=== PATIENT | female | born 1935 | race Caucasian/White ===

== ENCOUNTER 2024-08-18 17:20 | Inpatient (IN) | payer MEDICARE, SELFPAY ==
[2024-08-18 17:54] VITALS: BP 149/74; BP 149/79; PULSE 81; RESP 16; RESP 18; TEMP 37; O2SAT 94; BMI 25.8
--- NOTE | 2024-08-18 18:44 | HP.PCM_ITS ---
HPI - General General Date of Admission: 08/18/24 Date of Service: 08/19/24 Chief Complaint: Here for rehabilitation. HPI Narrative YULIYA GAVIN, is a 89 Female who presents with followin08/10/2024 Admit [facility] for fall. Fall with left hip fracture. Fentanyl, Morphine, Tramadol given. No syncope, no seizure. Morphine, gentle IV fluids, consult Orthopedics for left hip fracture. PT/OT/CM/SW. Lovenox for DVT prophylaxis. 08/11/2024 Orthopedics performed left cephalomedullary nail fixation. 08/12/2024 Doing well, Pain controlled. Henson in place, PT/OT. 08/13/2024 No acute events overnight, doing fine. On Otezla for Psoriasis. PT/OT for Inpatient rehabilitation. Up with PT. Patient developed oral thrush, c. diff diarrhea prior to discharge. 08/18/2024 Admit to TCU with debility, here for rehabilitation, strengthening, prior to discharge home alone. [facility] Medical History (Updated 08/18/24 @ 18:[address] Fred Paiz MD) Vitamin D deficiency Wrist fracture, bilateral Psoriasis Lactose intolerance History of bladder cancer Closed left hip fracture Fall Debility Home Medications ?Medication ?Instructions ?Recorded ?Last Taken ?Type acetaminophen 325 mg tablet 650 mg PO Q6H PRN mild pain (scale 08/18/24 08/18/24 History score 1-3) apremilast 30 mg tablet (Otezla) 30 mg PO DAILY see PCP 08/18/24 08/13/24 History ascorbic acid (vitamin C) 100 mg 100 mg PO DAILY supplement 08/18/24 Unknown History tablet (Vitamin C) cholecalciferol (vitamin D3) 50 2,000 unit PO DAILY supplement 08/18/24 Unknown History mcg (2,000 unit) capsule enoxaparin 40 mg/0.4 mL 40 mg subcut DAILY blood thinner 08/18/24 08/18/24 History subcutaneous syringe melatonin 10 mg tablet 10 mg PO QHS PRN sleep 08/18/24 Unknown History nystatin 100,000 unit/mL oral 5 ml PO TID thrush 08/18/24 08/18/24 History suspension oxycodone 5 mg tablet 2.5 mg PO Q6H PRN pain (scale 08/18/24 08/13/24 History score 4-10) polyethylene glycol 3350 17 17 g PO DAILY PRN constipation 08/18/24 08/13/24 History gram/dose oral powder (Miralax) trazodone 50 mg tablet 50 mg PO QHS PRN sleep 08/18/24 08/14/24 History vancomycin 125 mg capsule 125 mg PO 4X/DAY infection 08/18/24 Unknown History Allergy/AdvReac Type Severity Reaction Status Date / Time lactose Allergy Diarrhea Verified 08/18/24 17:51 Family History (Updated 08/18/24 @ 18:[address] Fred Paiz MD) Father Cancer Surgical History (Updated 08/18/24 @ 18:[address] Fred Paiz MD) History of open reduction and internal fixation (ORIF) procedure History of transurethral resection of bladder tumor (TURBT) History of cystoscopy Social History (Updated 08/18/24 @ 18:[address] Fred Paiz MD) household members: none Smoking Status: Never smoker alcohol intake: never substance use type: does not use ROS Constitutional Constitutional: Reports weakness; Denies chills, fever(s) or weight gain ENT HEENT: Denies headache(s), nasal congestion or nasal discharge Cardiovascular Cardiovascular: Denies chest pain or palpitations Respiratory/Chest Respiratory/Chest: Denies cough, excessive phlegm production or shortness of breath with exertion Gastrointestinal Gastrointestinal: Denies abdominal pain, nausea or vomiting Genitourinary Genitourinary: Denies dysuria Musculoskeletal Musculoskeletal: Denies joint pain or joint swelling Integumentary Integumentary: Denies rash or wounds Neurologic Neurologic: Denies focal weakness, numbness or tingling Psychiatric Psychiatric: Denies anxiety, auditory hallucinations, depression, homicidal ideation or suicidal ideation Physical Exam Const alert General Appearance: cooperative HEENT normocephalic Eyes PERRL and EOMs intact bilaterally Neck supple, no JVD and no carotid bruits Resp normal respiratory effort, normal air movement and clear to auscultation bilaterally Cardio regular rate and regular rhythm GI normal to inspection, nondistended, normoactive bowel sounds, non-tender and non-distended Extremity normal capillary refill Extremity Narrative: Left hip incision infected. Erythematous, tender, swollen, purulent drainage. General Extremity: Negative for edema Skin no rashes or lesions noted General Skin Exam: no breakdown Psych affect normal Appearance: appropriate Results Lab / Micro Data 08/19/24 05:28 08/19/24 05:28 Assessment & Plan Assessment/Plan (1) Debility: (2) Fall: (3) Closed left hip fracture: (4) History of bladder cancer: (5) Lactose intolerance: (6) Psoriasis: (7) Wrist fracture, bilateral: (8) Vitamin D deficiency: (9) Oral thrush: (10) Clostridioides difficile diarrhea: PLAN: Plan 89 year old female with below past medical history hospitalized for left hip fracture, under left hip cephalomedullary nail fixation 08/11/2024, complicated by oral thrush, c. diff diarrhea, admitted to TCU with debility, here for rehabilitation, strengthening, prior to discharge home alone. * Debility - PT/OT. * Pain - Tylenol 1000mg q8, Oxycodone 2.5mg q4 prn pain (1-10) * Bowel - Miralax 17gm daliy prn. * Adult immunization - Administer pneumonia vaccine, covid vaccine, flu vaccine as appropriate. * DVT prophylaxis - Lovenox 40mg sc daily. * Vitamin C deficiency - Vitamin C 500mg daily. * Vitamin D deficiency - D3 50mcg daily. * Insomnia - Melatonin 10mg qhs prn, Trazodone 50mg qhs prn, stable chronic residential use, GDR not recommended. * Thrush - Nystatin 500,000 units po tid thru 08/28/2024. * C. Diff colitis - Vancomycin 125mg po 4x/day thru 08/28/2024. * Cellulitis of left hip incision - swab gram stain, c+s, Keflex 500mg po bid x 7 days, Doxycycline 100mg bid x 7 days.
[2024-08-18] MEDS: Vancomycin 125 MG/5 ML Susp PO.SYRINGE PO (23:07)
[2024-08-18] MEDS: NYSTATIN 500,000 UNIT/5 ML UDC 500000 UNIT PO (23:07)
[2024-08-18] MEDS: Acetaminophen 500 MG Tablet 1000 MG PO (23:08)
--- NOTE | 2024-08-19 00:48 | NURSING ---
ABD pad to left thigh surgical incision seeping through dressing. Moderate amount of yellow/pink serosanguineous and purulent drainage noted. Incision site is reddened, warm to touch, and hard upon palpation. Surgical glue noted to incision, approximated with some separation noted. Tape blistering noted around surgical site. New ABD applied. Will continue to monitor. RN aware, will notify surgeon in AM.
[2024-08-19 05:53] LABS: Absolute Lymphocyte Count 2.16 X10^3/uL (0.83-4.51); Absolute Neutrophil Count 5.9 X10^3/uL (2.0-7.7); Basophil# 0.04 X10^3/uL; Basophil% 0.4 % (0-1); Eosinophil# 0.36 X10^3/uL; Eosinophils% 3.7 % (0-5); Hematocrit 29.9 % (37-47); Hemoglobin 9.9 g/dL (12.0-15.0); Lymphocyte # 2.16 X10^3/ul (0.83-4.51); Lymphocyte % 22.5 % (19-41); Mean Corp Hgb Conc 33.1 g/dL (32-36); Mean Corpuscular Hgb 29.7 pg (27.0-32.0); Mean Corpuscular Volume 89.8 fL (81-99); Mean Platelet Vol. 9.3 fl (6.2-12.0); Monocyte# 1.07 X10^3/uL; Monocyte% 11.1 % (0-10); NRBC Flagged by Analyzer 0 % (0-5); Neutrophil # 5.86 X10^3/uL (2.7-7.7); Neutrophil % 61.1 % (47-70); Platelet Count 388 K/mm3 (150-450); RBC Distribution Width CV 13.5 % (11.6-14.6); RBC Distribution Width SD 43.7 fl (35.1-43.9); Red Blood Count 3.33 M/mm3 (4.2-5.4); White Blood Count 9.6 K/mm3 (4.4-11.0)
[2024-08-19] MEDS: NYSTATIN 500,000 UNIT/5 ML UDC 500000 UNIT PO ×3 (06:03→21:12)
[2024-08-19] MEDS: Acetaminophen 500 MG Tablet 1000 MG PO ×3 (06:03→21:18)
[2024-08-19] MEDS: Vancomycin 125 MG/5 ML Susp PO.SYRINGE PO ×4 (06:03→21:13)
--- NOTE | 2024-08-19 06:14 | NURSING ---
Left hip dressing saturated upon med pass this AM, yellow and pink drainage. New ABD applied. RN aware. Will continue to monitor.
[2024-08-19 06:18] LABS: Anion Gap 6 (5-15); BUN 8 mg/dL (7-18); BUN/Creat Ratio 15.2 RATIO (10-20); Calcium,Total 8.7 mg/dL (8.5-10.1); Chloride 102 mmol/L (98-107); Creatinine, Serum 0.53 mg/dL (0.55-1.02); EST Glomerular Filtration Rate 117 mL/min (>60); Est Glom Filt Rate - Afr Amer 141 mL/min (>60); Estimated Creatinine Clearance 40.13 ml/min; Glucose 92 mg/dL (74-106); Potassium 3.7 mmol/L (3.5-5.1); Sodium Level 135 mmol/L (136-145)
[2024-08-19] MEDS: Enoxaparin 40 MG/0.4 ML Syringe SC (08:45)
[2024-08-19] MEDS: Ascorbic Acid 500 MG Tablet PO (08:45)
[2024-08-19] MEDS: Cholecalciferol (VIT D3) 25 MCG TABLET (1,000 UNITS) 50 MCG PO (08:45)
[2024-08-19] MEDS: Cephalexin 500 MG Capsule PO ×2 (08:45→21:13)
[2024-08-19] MEDS: Doxycycline monohydrate 25 MG/5 ML SUSP. 100 MG PO ×2 (08:45→21:16)
--- NOTE | 2024-08-19 10:50 | NURSING ---
Mainframe Programmer Note; Activity Asset: Gabriel Mcelroy is independent in her choice of daily activities. She was admitted on isolation and will need room activities at this time. She has her wood puzzles, smartphone, tv and items to read. Lilibeth was born in [facility] [place] and moved her when she was young w/her family. Staff will offer room activities during ISO period and respect her right top say no.
--- NOTE | 2024-08-19 11:32 | NURSING ---
Contacted Dr. Breezy Vergara office regarding draining from surgical incision and swelling. Medical staff requests pictures to be sent of hip and these are sent via secure email. Siri From Dr. Gee's office calls back with Dr. Gee's orders to continue Keflex and Doxycycline, continue to monitor for purulent drainage or redness and to reinforce with steri-strips if dehiscence begins, continue to change DSD daily and ice and elevate leg.
--- NOTE | 2024-08-19 12:26 | CASEMGMT ---
Social Work SW met with patient to complete initial assessment. Introduced self and role. Verified/updated contacts. Patient confirmed code status as full code. SW requested son provide copies of pt's advanced directives. SW educated to [facility] insurance with [employer]D 08/23 and continued stay is not guaranteed with each review. Pt's goal is to return home alone, but has a flight of steps to bedroom and full bath. SW will continue to follow for DC planning. Brittani Hudson, MAO BROWNW
[2024-08-19] MEDS: Tuberculin,Purif.prot.deriv. 50 TU/ML Vial 0.1 ML ID (13:20)
[2024-08-19 14:13] VITALS: BP 126/59; PULSE 75; RESP 16; TEMP 37; O2SAT 94
--- NOTE | 2024-08-19 15:02 | PHA.CONS_ITS ---
Documented by User: Lali Oliva 08/19/24 15:14 TCU RX Drug Regimen Review Subjective/Objective Subjective/Objective Subjective: TCU Admission. 89 YOF presented to outside hospital with a fall. Hospitalized for left hip fracture, under left hip cephalomedullary nail fix ation 08/11/2024, complicated by oral thrush, c. diff diarrhea. Admitted to TCU with debility for strengthening and rehabilitation. Objective: Allergies lactose Allergy (Verified 08/18/24 17:51) Diarrhea lactose intolerance Current Medications Generic Name Dose Route Start Last Admin Trade Name Freq PRN Reason Stop Dose Admin Acetaminophen 1,000 mg 08/18/24 22:00 08/19/24 13:20 Acetaminophen 500 Mg Tablet PO 1,000 mg Q8 EDDI Administration Ascorbic Acid 500 mg 08/19/24 10:00 08/19/24 08:45 Ascorbic Acid 500 Mg Tablet PO 500 mg DAILY EDDI Administration Cephalexin 500 mg 08/19/24 10:00 08/19/24 08:45 Cephalexin 500 Mg Capsule PO 08/26/24 10:01 500 mg Q12 EDDI Administration Cholecalciferol 50 mcg 08/19/24 10:00 08/19/24 08:45 Cholecalciferol (Vit D3) 25 Mcg Tablet (1,000 Units) PO 50 mcg DAILY EDDI Administration Doxycycline Monohydrate 100 mg 08/19/24 10:00 08/19/24 08:45 Doxycycline Monohydrate 25 Mg/5 Ml Susp. PO 08/26/24 10:01 100 mg Q12 EDDI Administration Enoxaparin Sodium 40 mg 08/19/24 10:00 08/19/24 08:45 Enoxaparin 40 Mg/0.4 Ml Syringe SC 40 mg DAILY EDDI Administration Melatonin 10 mg 08/18/24 18:05 Melatonin 10 Mg Tablet PO QHS PRN sleep Nystatin 500,000 unit 08/18/24 22:00 08/19/24 13:20 Nystatin 500,000 Unit/5 Ml Udc PO 08/28/24 22:01 500,000 unit TID EDDI Administration Oxycodone HCl 2.5 mg 08/18/24 18:53 Oxycodone 5 Mg Tablet PO Q4H PRN PRN Pain Score 1-10 or Pre PT/OT Polyethylene Glycol 17 gm 08/18/24 18:23 Polyethylene Glycol 3350 17 Gm Packet PO DAILY PRN constipation Sodium Chloride 10 - 40 ml 08/18/24 18:06 0.9% Saline Lock 10 Ml Syringe IV UD PRN SALINE FLUSH Trazodone HCl 50 mg 08/18/24 18:05 Trazodone 50 Mg Tablet PO QHS PRN sleep Tuberculin PPD 0.1 ml 08/26/24 10:00 Tuberculin,Purif.Prot.Deriv. 50 Tu/Ml Vial ID 08/26/24 10:01 X1 ONE Vancomycin HCl 125 mg 08/18/24 22:00 08/19/24 13:20 Vancomycin 125 Mg/5 Ml Susp Po.Syringe PO 08/28/24 22:01 125 mg 4X/DAY EDDI Administration Problem List Clostridioides difficile diarrhea (Acute) Oral thrush (Acute) Vitamin D deficiency (Acute) Wrist fracture, bilateral (Acute) Psoriasis (Acute) Lactose intolerance (Acute) History of bladder cancer (Acute) Closed left hip fracture (Acute) Fall (Acute) Debility (Acute) Vital Signs Temp Pulse Resp BP Pulse Ox O2 Del Method 98.6 F 75 16 126/59 H 94 Room Air 08/19/24 14:13 08/19/24 14:13 08/19/24 14:13 08/19/24 14:13 08/19/24 14:13 08/19/24 14:13 Oxygen Delivery Method Room Air Weight: 60.01 kg Body Mass Index (BMI) 25.8 Sodium 135 mmol/L (136-145) L 08/19/24 05:28 Potassium 3.7 mmol/L (3.5-5.1) 08/19/24 05:28 Chloride 102 mmol/L (98-107) 08/19/24 05:28 Carbon Dioxide 27.0 mmol/L (21.0-32.0) 08/19/24 05:28 Anion Gap 6 (5-15) 08/19/24 05:28 BUN 8 mg/dL (7-18) 08/19/24 05:28 Creatinine 0.53 mg/dL (0.55-1.02) L 08/19/24 05:28 Est GFR (MDRD) Af Amer 141 mL/min (>60) 08/19/24 05:28 Est GFR (MDRD) Non-Af 117 mL/min (>60) 08/19/24 05:28 BUN/Creatinine Ratio 15.2 RATIO (10-20) 08/19/24 05:28 Glucose 92 mg/dL (74-106) 08/19/24 05:28 Assessment/Plan: 1. Pain: acetaminophen 1000mg PO Q8 and oxycodone 2.5mg PO Q4H PRN pain 1-10. Please continue to monitor for increased pain and PRN usage (no doses given). 2. Bowel: Miralax 17gm PO daily PRN constipation. No PRN doses given. Please continue to monitor for constipation and PRN usage. Last documented bowel movement was 08/19. 3. DVT prophylaxis: enoxaparin 40mg SC daily. Please continue to monitor for S/S of bleeding/DVT, hemoglobin (last 9.9g/dL), platelets (last 388,000) and renal function (CrCl 40mL/min). 4. Cellulitis of left hip incision: cephalexin 500mg PO BID thru 08/26/24 and doxycycline 100mg PO Q12 thru 08/26/24. Please continue to monitor for improvement of infection, worsening infection, diarrhea (already has C. diff), renal function and upset stomach. 5. Thrush: nystatin 500,000units PO TID thru 08/28/24. Please continue to monitor for S/S of improvement. 6. Vitamin D/C deficiencies: ascorbic acid 500mg PO daily and cholecalciferol 50mcg PO daily. Please consider ordering a vitamin D level as there is no level in the chart. Thanks. Assessment/Plan for indications treated with psychotropic medications: 1. Insomnia: melatonin 10mg PO QHS PRN sleep and trazodone 50mg PO QHS PRN sleep. Please see physician note regarding GDR. No PRN doses given. Please consider adding instruction on which should be given first line versus second line as this is a duplicate. Thanks. Medical chart and medication regimen reviewed. The following medication irregularities or issues were identified: 1. Melatonin 10mg PO QHS PRN sleep and trazodone 50mg PO QHS PRN sleep. Please consider adding instruction on which should be given first line versus second line as this is a duplicate. Thanks. 2. Cholecalciferol 50mcg PO daily. Please consider ordering a vitamin D level as there is no level in the chart. Thanks. Date Date of Note: 08/19/24 Documented by User: Dr. Fred Paiz MD 08/19/24 17:11 TCU RX Drug Regimen Review Provider Comments Provider responsibility Provider Comments to Recommendations by Pharmacy Agree
--- NOTE | 2024-08-19 19:37 | NURSING ---
All nursing care and medication given in room while patient is on special contact precautions.
[2024-08-20] MEDS: Vancomycin 125 MG/5 ML Susp PO.SYRINGE PO ×4 (05:20→22:37)
[2024-08-20] MEDS: Acetaminophen 500 MG Tablet 1000 MG PO ×3 (05:20→22:37)
[2024-08-20] MEDS: NYSTATIN 500,000 UNIT/5 ML UDC 500000 UNIT PO ×3 (05:20→22:47)
[2024-08-20] MEDS: Doxycycline monohydrate 25 MG/5 ML SUSP. 100 MG PO ×2 (09:58→22:46)
[2024-08-20] MEDS: Ascorbic Acid 500 MG Tablet PO (09:58)
[2024-08-20] MEDS: Cholecalciferol (VIT D3) 25 MCG TABLET (1,000 UNITS) 50 MCG PO (09:58)
[2024-08-20] MEDS: Cephalexin 500 MG Capsule PO ×2 (09:58→22:47)
[2024-08-20] MEDS: Enoxaparin 40 MG/0.4 ML Syringe SC (09:59)
--- NOTE | 2024-08-20 15:23 | CHAPLAIN ---
Type of Pastoral Visit _x__ Initial Visit ___ Follow-up Visit ___ On-call Visit ___ General Patient Visit ___ Spiritual Assessment ___ Family Conference ___ Bereavement ___ Rapid Response ___ Code Blue ___ Other (describe below) Pastoral Care Referral From _x__ Patient ___ Family ___ Nurse ___ Physician ___ Thermodynamics Engineer ___ Contact Officer ___ Other (describe below) Sacrament/Intervention _x__ Active listening ___ Anointing ___ Adventism ___ Bereavement ___ Communion ___ Carissa exploration ___ _x__ Life review _x__ Prayer ___ Reconciliation ___ Sacrament of Sick ___ Supportive presence ___ Wedding ___ Other (describe below) Pastoral Comments patient and her sister are in the room; pt is willing to talk about her experience thus far and to give lots of life review; pt came to [place] at age 14 and recounts the reasons, what happened here, and how she has lived for these [place] in this [place]; pt is a healthy 89 year old that still works a little bit and hopes to return to work; pt expresses thankfulness for the great care and service she is receiving here; prayer welcomed
[2024-08-20 15:32] VITALS: BP 132/40; PULSE 83; RESP 16; TEMP 35.9; O2SAT 94; BMI 26.1
--- NOTE | 2024-08-20 22:30 | NURSING ---
pt noted to have feet crossed when nurse entered room to administer HS meds. pt education provided regarding hip precautions. reinforcement needed.
--- NOTE | 2024-08-21 02:58 | NURSING ---
Pt states she is having difficulty sleeping at night. Pt had been offered melatonin with HS meds; pt declined because of past experience with melatonin where she awoke in the middle of the night groggy and confused. Pt states she normally takes Zzzquil at home as a sleep aide.
[2024-08-21] MEDS: NYSTATIN 500,000 UNIT/5 ML UDC 500000 UNIT PO ×3 (05:46→21:59)
[2024-08-21] MEDS: Vancomycin 125 MG/5 ML Susp PO.SYRINGE PO ×4 (05:46→22:04)
[2024-08-21] MEDS: Acetaminophen 500 MG Tablet 1000 MG PO ×2 (05:46→12:58)
--- NOTE | 2024-08-21 09:37 | CASEMGMT ---
Social Work IDT met with pt at bedside and son via conference call for care plan meeting. Discussed patient's progress in PT/OT/SN. Educated to [facility] insurance with NRD 08/23 and continued stay is not guaranteed with each review. Provided pt with written communication on insurance process and copay coverage during stay. Pt is in isolation through 08/28, if not symptomatic. Therapy to focus further on stair training and ambulating longer distances for homegoing. Pt will need to return to [facility] to return home safely. Team answered son's questions. SW will continue to follow for DC planning. Brittani Hudson LEAK DETECTOR PHYSICIST CRYOGENICS
[2024-08-21] MEDS: Doxycycline monohydrate 25 MG/5 ML SUSP. 100 MG PO ×2 (10:04→21:58)
[2024-08-21] MEDS: Cholecalciferol (VIT D3) 25 MCG TABLET (1,000 UNITS) 50 MCG PO (10:04)
[2024-08-21] MEDS: Ascorbic Acid 500 MG Tablet PO (10:04)
[2024-08-21] MEDS: Cephalexin 500 MG Capsule PO ×2 (10:05→21:59)
[2024-08-21] MEDS: Enoxaparin 40 MG/0.4 ML Syringe SC (10:05)
[2024-08-21] MEDS: Lactobacillis Acidophilus 1 CAP PO ×2 (10:07→21:57)
[2024-08-21 13:51] VITALS: BP 123/60; PULSE 71; RESP 14; TEMP 36.2; O2SAT 95
[2024-08-21] MEDS: DiphenhydrAMINE 25 MG Capsule PO (22:12)
--- NOTE | 2024-08-21 23:11 | NURSING ---
All patient care provided in room due to contact isolation precautions.
[2024-08-22] MEDS: Acetaminophen 500 MG Tablet 1000 MG PO ×3 (05:55→21:40)
[2024-08-22] MEDS: NYSTATIN 500,000 UNIT/5 ML UDC 500000 UNIT PO ×3 (05:55→21:38)
[2024-08-22] MEDS: Vancomycin 125 MG/5 ML Susp PO.SYRINGE PO ×4 (05:55→21:40)
[2024-08-22 10:00] VITALS: BP 144/69; PULSE 73; RESP 16; TEMP 36.4; O2SAT 95
[2024-08-22] MEDS: Lactobacillis Acidophilus 1 CAP PO ×2 (10:51→21:37)
[2024-08-22] MEDS: Cephalexin 500 MG Capsule PO ×2 (10:54→21:37)
[2024-08-22] MEDS: Ascorbic Acid 500 MG Tablet PO (10:54)
[2024-08-22] MEDS: Cholecalciferol (VIT D3) 25 MCG TABLET (1,000 UNITS) 50 MCG PO (10:54)
[2024-08-22] MEDS: Enoxaparin 40 MG/0.4 ML Syringe SC (10:54)
[2024-08-22 20:00] VITALS: PULSE 70; O2SAT 94
[2024-08-22] MEDS: Doxycycline 100 MG CAPSULE PO (21:37)
[2024-08-22] MEDS: DiphenhydrAMINE 25 MG Capsule PO (21:41)
--- NOTE | 2024-08-23 04:01 | NURSING ---
All patient care provided in room due to contact isolation precautions.
[2024-08-23] MEDS: NYSTATIN 500,000 UNIT/5 ML UDC 500000 UNIT PO ×3 (05:27→21:00)
[2024-08-23] MEDS: Vancomycin 125 MG/5 ML Susp PO.SYRINGE PO ×4 (05:28→21:00)
[2024-08-23] MEDS: Acetaminophen 500 MG Tablet 1000 MG PO ×3 (05:28→21:00)
[2024-08-23 06:44] VITALS: PULSE 74; O2SAT 95
[2024-08-23] MEDS: Ascorbic Acid 500 MG Tablet PO (09:02)
[2024-08-23] MEDS: Doxycycline 100 MG CAPSULE PO ×2 (09:02→21:01)
[2024-08-23] MEDS: Lactobacillis Acidophilus 1 CAP PO ×2 (09:02→20:59)
[2024-08-23] MEDS: Cholecalciferol (VIT D3) 25 MCG TABLET (1,000 UNITS) 50 MCG PO (09:02)
[2024-08-23] MEDS: Cephalexin 500 MG Capsule PO ×2 (09:02→21:00)
--- NOTE | 2024-08-23 09:57 | MDS.RN ---
MDS pain assessment complete.
--- NOTE | 2024-08-23 14:29 | CASEMGMT ---
Social Work SW completed BIMS () and PHQ-2 () for MDS assessment. Brittani Hudson MSW OXYACETYLENE WELDER
[2024-08-23 14:55] VITALS: BP 125/59; PULSE 79; RESP 16; TEMP 36.8; O2SAT 93
[2024-08-23] MEDS: DiphenhydrAMINE 25 MG Capsule PO (20:59)
[2024-08-24] MEDS: NYSTATIN 500,000 UNIT/5 ML UDC 500000 UNIT PO ×3 (06:28→21:44)
[2024-08-24] MEDS: Vancomycin 125 MG/5 ML Susp PO.SYRINGE PO ×4 (06:30→21:44)
[2024-08-24] MEDS: Acetaminophen 500 MG Tablet 1000 MG PO ×3 (06:30→21:44)
[2024-08-24] MEDS: Cephalexin 500 MG Capsule PO ×2 (11:14→21:44)
[2024-08-24] MEDS: Cholecalciferol (VIT D3) 25 MCG TABLET (1,000 UNITS) 50 MCG PO (11:14)
[2024-08-24] MEDS: Ascorbic Acid 500 MG Tablet PO (11:14)
[2024-08-24] MEDS: Doxycycline 100 MG CAPSULE PO ×2 (11:14→21:44)
[2024-08-24] MEDS: Lactobacillis Acidophilus 1 CAP PO ×2 (11:14→21:44)
[2024-08-24 12:42] VITALS: BP 124/56; PULSE 75; RESP 16; TEMP 36.6; O2SAT 95
[2024-08-24 16:00] VITALS: RESP 18
[2024-08-24] MEDS: DiphenhydrAMINE 25 MG Capsule PO (21:57)
[2024-08-24 22:00] VITALS: PULSE 87; RESP 16; O2SAT 97
--- NOTE | 2024-08-25 04:34 | NURSING ---
Enteric precautions continue as ordered for C-diff. Oral vanc continues as ordered without reported or observed adverse effects. No rash, no GI distress. All care provided in room.
[2024-08-25] MEDS: NYSTATIN 500,000 UNIT/5 ML UDC 500000 UNIT PO ×3 (06:40→21:56)
[2024-08-25] MEDS: Vancomycin 125 MG/5 ML Susp PO.SYRINGE PO ×4 (06:40→21:58)
[2024-08-25] MEDS: Acetaminophen 500 MG Tablet 1000 MG PO ×3 (06:41→21:58)
[2024-08-25 06:55] VITALS: PULSE 80; RESP 18; O2SAT 98
[2024-08-25] MEDS: Doxycycline 100 MG CAPSULE PO ×2 (08:12→21:56)
[2024-08-25] MEDS: Lactobacillis Acidophilus 1 CAP PO ×2 (08:12→21:56)
[2024-08-25] MEDS: Cholecalciferol (VIT D3) 25 MCG TABLET (1,000 UNITS) 50 MCG PO (08:12)
[2024-08-25] MEDS: Cephalexin 500 MG Capsule PO ×2 (08:12→21:56)
[2024-08-25] MEDS: Ascorbic Acid 500 MG Tablet PO (08:12)
[2024-08-25 10:24] VITALS: BP 132/56; PULSE 77; RESP 18; TEMP 36.2; O2SAT 96
[2024-08-26] MEDS: Acetaminophen 500 MG Tablet 1000 MG PO ×3 (05:22→19:48)
[2024-08-26] MEDS: NYSTATIN 500,000 UNIT/5 ML UDC 500000 UNIT PO ×3 (05:22→19:47)
[2024-08-26] MEDS: Vancomycin 125 MG/5 ML Susp PO.SYRINGE PO ×4 (05:23→19:47)
[2024-08-26 05:50] LABS: Absolute Lymphocyte Count 2.16 X10^3/uL (0.83-4.51); Absolute Neutrophil Count 4.7 X10^3/uL (2.0-7.7); Basophil# 0.04 X10^3/uL; Basophil% 0.5 % (0-1); Eosinophil# 0.19 X10^3/uL; Eosinophils% 2.4 % (0-5); Hematocrit 38.4 % (37-47); Hemoglobin 11.8 g/dL (12.0-15.0); Lymphocyte # 2.16 X10^3/ul (0.83-4.51); Lymphocyte % 27.8 % (19-41); Mean Corp Hgb Conc 30.7 g/dL (32-36); Mean Corpuscular Hgb 29.6 pg (27.0-32.0); Mean Corpuscular Volume 96.5 fL (81-99); Monocyte# 0.67 X10^3/uL; Monocyte% 8.6 % (0-10); NRBC Flagged by Analyzer 0 % (0-5); Neutrophil # 4.66 X10^3/uL (2.7-7.7); Neutrophil % 60.2 % (47-70); Platelet Count 547 K/mm3 (150-450); RBC Distribution Width CV 15.5 % (11.6-14.6); RBC Distribution Width SD 54.5 fl (35.1-43.9); Red Blood Count 3.98 M/mm3 (4.2-5.4); White Blood Count 7.8 K/mm3 (4.4-11.0)
[2024-08-26 06:13] LABS: Anion Gap 6 (5-15); BUN 14 mg/dL (7-18); BUN/Creat Ratio 21.1 RATIO (10-20); Calcium,Total 9.1 mg/dL (8.5-10.1); Chloride 104 mmol/L (98-107); Creatinine, Serum 0.66 mg/dL (0.55-1.02); EST Glomerular Filtration Rate 90 mL/min (>60); Est Glom Filt Rate - Afr Amer 108 mL/min (>60); Estimated Creatinine Clearance 40.31 ml/min; Glucose 94 mg/dL (74-106); Potassium 4.4 mmol/L (3.5-5.1); Sodium Level 137 mmol/L (136-145)
--- NOTE | 2024-08-26 08:38 | NURSING ---
Digital Asset Specialist Note; MDS for 08/25/2024 Complete
[2024-08-26] MEDS: Cholecalciferol (VIT D3) 25 MCG TABLET (1,000 UNITS) 50 MCG PO (08:54)
[2024-08-26] MEDS: Lactobacillis Acidophilus 1 CAP PO ×2 (08:54→19:47)
[2024-08-26] MEDS: Cephalexin 500 MG Capsule PO (08:54)
[2024-08-26] MEDS: Doxycycline 100 MG CAPSULE PO ×2 (08:54→19:47)
[2024-08-26] MEDS: Ascorbic Acid 500 MG Tablet PO (08:54)
--- NOTE | 2024-08-26 10:23 | NURSING ---
Offered covid vaccine, VIS provided. Resident refuses at this time.
[2024-08-26] MEDS: Tuberculin,Purif.prot.deriv. 50 TU/ML Vial 0.1 ML ID (10:49)
[2024-08-26 16:00] VITALS: BP 140/61; PULSE 75; RESP 16; TEMP 36.5; O2SAT 93
[2024-08-27] MEDS: NYSTATIN 500,000 UNIT/5 ML UDC 500000 UNIT PO ×3 (05:22→20:00)
[2024-08-27] MEDS: Vancomycin 125 MG/5 ML Susp PO.SYRINGE PO ×4 (05:22→20:00)
[2024-08-27] MEDS: Acetaminophen 500 MG Tablet 1000 MG PO ×3 (05:22→20:00)
[2024-08-27] MEDS: Lactobacillis Acidophilus 1 CAP PO ×2 (07:26→20:00)
[2024-08-27] MEDS: Ascorbic Acid 500 MG Tablet PO (07:26)
[2024-08-27] MEDS: Cholecalciferol (VIT D3) 25 MCG TABLET (1,000 UNITS) 50 MCG PO (07:26)
[2024-08-27 07:32] VITALS: BP 121/61; PULSE 69; RESP 18; TEMP 36.1; O2SAT 95
--- NOTE | 2024-08-27 08:58 | NURSING ---
ALL CARE PROVIDED IN ROOM THIS SHIFT D/T ENTERIC PRECAUTIONS.
[2024-08-28] MEDS: NYSTATIN 500,000 UNIT/5 ML UDC 500000 UNIT PO ×3 (06:01→20:39)
[2024-08-28] MEDS: Vancomycin 125 MG/5 ML Susp PO.SYRINGE PO ×4 (06:01→20:38)
[2024-08-28] MEDS: Acetaminophen 500 MG Tablet 1000 MG PO ×3 (06:01→20:40)
[2024-08-28] MEDS: Ascorbic Acid 500 MG Tablet PO (08:14)
[2024-08-28] MEDS: Lactobacillis Acidophilus 1 CAP PO ×2 (08:14→20:39)
[2024-08-28] MEDS: Cholecalciferol (VIT D3) 25 MCG TABLET (1,000 UNITS) 50 MCG PO (08:14)
[2024-08-28 15:48] VITALS: BP 136/64; PULSE 70; RESP 15; TEMP 36.4; O2SAT 95
[2024-08-28] MEDS: DiphenhydrAMINE 25 MG Capsule PO (22:04)
[2024-08-29] MEDS: Acetaminophen 500 MG Tablet 1000 MG PO ×3 (06:13→21:17)
[2024-08-29 06:26] VITALS: PULSE 73; RESP 16; O2SAT 95
--- NOTE | 2024-08-29 06:36 | NURSING ---
Patient stated that follow up appt with Dr. Vergara 09/02 has been changed due to son being unable to take her. She will obtain the information and let nursing know of day and time of appt.
[2024-08-29 08:19] VITALS: BP 110/54; PULSE 76; RESP 16; TEMP 36.6; O2SAT 93
[2024-08-29] MEDS: Lactobacillis Acidophilus 1 CAP PO ×2 (08:27→21:17)
[2024-08-29] MEDS: Ascorbic Acid 500 MG Tablet PO (08:27)
[2024-08-29] MEDS: Cholecalciferol (VIT D3) 25 MCG TABLET (1,000 UNITS) 50 MCG PO (08:27)
--- NOTE | 2024-08-29 13:17 | MDS.RN ---
Information for the MDS was obtained from review of the clinical record, interview of resident, staff, and direct observation of resident?s care.
[2024-08-29] MEDS: DiphenhydrAMINE 25 MG Capsule PO (22:16)
[2024-08-30] MEDS: Acetaminophen 500 MG Tablet 1000 MG PO ×2 (05:20→17:52)
[2024-08-30 07:56] VITALS: BP 132/66; PULSE 75; RESP 16; TEMP 36.5; O2SAT 91
[2024-08-30] MEDS: Ascorbic Acid 500 MG Tablet PO (07:57)
[2024-08-30] MEDS: Lactobacillis Acidophilus 1 CAP PO ×2 (07:57→20:22)
[2024-08-30] MEDS: Cholecalciferol (VIT D3) 25 MCG TABLET (1,000 UNITS) 50 MCG PO (07:57)
--- NOTE | 2024-08-30 15:32 | CASEMGMT ---
Social Work SW spoke with pt to follow up on DC planning now that pt is out of isolation. Pt has done well with stair training in PT. Pt is anxious to return home, but will converse with son to set DC date. ENTERPRISE SOFTWARE ENGINEER is recommending pediatric FWW and pt can choose HHC vs OP therapy. SW to finalize DC plans once pt has spoken to son. SW will continue to follow. Brittani Hudson MANAGER QUALITY COMPLIANCE ORCHARD WORKER
[2024-08-30 21:00] VITALS: PULSE 76; RESP 18; O2SAT 93
[2024-08-30] MEDS: DiphenhydrAMINE 25 MG Capsule PO (22:30)
[2024-08-31] MEDS: Ascorbic Acid 500 MG Tablet PO (08:26)
[2024-08-31] MEDS: Lactobacillis Acidophilus 1 CAP PO ×2 (08:26→20:50)
[2024-08-31] MEDS: Cholecalciferol (VIT D3) 25 MCG TABLET (1,000 UNITS) 50 MCG PO (08:26)
[2024-08-31 13:22] VITALS: BP 133/61; PULSE 86; RESP 14; TEMP 36.6; O2SAT 93
[2024-08-31] MEDS: Acetaminophen 500 MG Tablet 1000 MG PO (17:37)
[2024-09-01] MEDS: DiphenhydrAMINE 25 MG Capsule PO ×2 (01:05→21:47)
[2024-09-01 08:19] VITALS: BP 139/62; PULSE 77; RESP 16; TEMP 37.3; O2SAT 97
[2024-09-01] MEDS: Cholecalciferol (VIT D3) 25 MCG TABLET (1,000 UNITS) 50 MCG PO (08:24)
[2024-09-01] MEDS: Lactobacillis Acidophilus 1 CAP PO ×2 (08:24→21:47)
[2024-09-01] MEDS: Ascorbic Acid 500 MG Tablet PO (08:24)
[2024-09-01] MEDS: Acetaminophen 500 MG Tablet 1000 MG PO ×2 (08:26→19:53)
[2024-09-02 05:47] LABS: Absolute Lymphocyte Count 2.23 X10^3/uL (0.83-4.51); Absolute Neutrophil Count 2.3 X10^3/uL (2.0-7.7); Basophil# 0.03 X10^3/uL; Basophil% 0.5 % (0-1); Eosinophil# 0.18 X10^3/uL; Eosinophils% 3.3 % (0-5); Hematocrit 38.3 % (37-47); Hemoglobin 12.2 g/dL (12.0-15.0); Lymphocyte # 2.23 X10^3/ul (0.83-4.51); Lymphocyte % 40.5 % (19-41); Mean Corp Hgb Conc 31.9 g/dL (32-36); Mean Corpuscular Hgb 30.5 pg (27.0-32.0); Mean Corpuscular Volume 95.8 fL (81-99); Mean Platelet Vol. 9.2 fl (6.2-12.0); Monocyte# 0.73 X10^3/uL; Monocyte% 13.3 % (0-10); NRBC Flagged by Analyzer 0 % (0-5); Neutrophil # 2.31 X10^3/uL (2.7-7.7); Platelet Count 426 K/mm3 (150-450); RBC Distribution Width CV 15.4 % (11.6-14.6); RBC Distribution Width SD 54.5 fl (35.1-43.9); White Blood Count 5.5 K/mm3 (4.4-11.0)
[2024-09-02 06:18] LABS: Anion Gap 6 (5-15); BUN 8 mg/dL (7-18); BUN/Creat Ratio 11.8 RATIO (10-20); Chloride 104 mmol/L (98-107); Creatinine, Serum 0.68 mg/dL (0.55-1.02); EST Glomerular Filtration Rate 87 mL/min (>60); Est Glom Filt Rate - Afr Amer 105 mL/min (>60); Estimated Creatinine Clearance 40.31 ml/min; Glucose 86 mg/dL (74-106); Potassium 4.4 mmol/L (3.5-5.1); Sodium Level 140 mmol/L (136-145)
[2024-09-02 06:49] VITALS: PULSE 72; O2SAT 96
[2024-09-02] MEDS: Cholecalciferol (VIT D3) 25 MCG TABLET (1,000 UNITS) 50 MCG PO (09:08)
[2024-09-02] MEDS: Lactobacillis Acidophilus 1 CAP PO ×2 (09:08→19:40)
[2024-09-02] MEDS: Acetaminophen 500 MG Tablet 1000 MG PO ×2 (09:08→19:39)
[2024-09-02] MEDS: Ascorbic Acid 500 MG Tablet PO (09:08)
[2024-09-02 16:00] VITALS: BP 126/69; PULSE 77; RESP 16; TEMP 36.6; O2SAT 92
--- NOTE | 2024-09-02 16:20 | CASEMGMT ---
Social Work SW spoke with pt several times this date to coordinate DC plans. Pt has requested to DC home 09/04 at 0900 for son's work schedule to transport. Pt prefers outpatient therapy. SW provided verbal list of options in [place]. Pt prefers [facility]. SW confirmed pediatric FWW at DC. No other needs noted. SW faxed referral to [facility] for PT. Referral sent to [facility] via [facility]. Plan: DC home alone 09/04, [facility] PT, pediatric FWW Brittani Hudson MATHEMATICAL TECHNICIAN BELT SANDER STONE
--- NOTE | 2024-09-02 16:39 | CASEMGMT ---
Social Work SW completed BIMS () and PHQ-2 () for MDS assessment. Brittani Hudson INDUSTRIAL ELECTRICIAN COVER CUTTER MACHINE
--- NOTE | 2024-09-02 19:52 | DS.PCM_ITS ---
Providers Date of Admission: 08/18/24 Primary Care Physician: Dr. John Landin MD Reason For Visit: LEFT HIP FRACTURE Diagnosis Discharge Diagnosis (1) Debility: Status: Acute Code(s): R53.81 - Other malaise (2) Fall: Status: Acute Code(s): W19.XXXA - Unspecified fall, initial encounter (3) Closed left hip fracture: Status: Acute Code(s): S72.002A - Fracture of unspecified part of neck of left femur, initial encounter for closed fracture (4) History of bladder cancer: Status: Acute Code(s): Z85.51 - Personal history of malignant neoplasm of bladder (5) Lactose intolerance: Status: Acute Code(s): E73.9 - Lactose intolerance, unspecified (6) Psoriasis: Status: Acute Code(s): L40.9 - Psoriasis, unspecified (7) Wrist fracture, bilateral: Status: Acute Code(s): S62.101A - Fracture of unspecified carpal bone, right wrist, initial encounter for closed fracture; S62.102A - Fracture of unspecified carpal bone, left wrist, initial encounter for closed fracture (8) Vitamin D deficiency: Status: Acute Code(s): E55.9 - Vitamin D deficiency, unspecified (9) Oral thrush: Status: Acute Code(s): B37.0 - Candidal stomatitis (10) Clostridioides difficile diarrhea: Status: Acute Code(s): A04.72 - Enterocolitis due to Clostridium difficile, not specified as recurrent Plan 89 year old female with below past medical history hospitalized for left hip fracture, under left hip cephalomedullary nail fixation 08/11/2024, complicated by oral thrush, c. diff diarrhea, admitted to TCU with debility, here for rehabilitation, strengthening, prior to discharge home alone. * Debility - PT/OT. * Pain - Tylenol 1000mg q8, Oxycodone 2.5mg q4 prn pain (1-10) * Bowel - Miralax 17gm daliy prn. * Adult immunization - Administer pneumonia vaccine, covid vaccine, flu vaccine as appropriate. * DVT prophylaxis - Lovenox 40mg sc daily. * Vitamin C deficiency - Vitamin C 500mg daily. * Vitamin D deficiency - D3 50mcg daily. * Insomnia - Melatonin 10mg qhs prn, Trazodone 50mg qhs prn, stable chronic extermination supervisor use, GDR not recommended. * Thrush - Nystatin 500,000 units po tid thru 08/28/2024. * C. Diff colitis - Vancomycin 125mg po 4x/day thru 08/28/2024. * Cellulitis of left hip incision - swab gram stain, c+s, Keflex 500mg po bid x 7 days, Doxycycline 100mg bid x 7 days. Medications at Discharge Home Medications apremilast 30 mg tablet (Otezla) 30 mg PO DAILY see PCP 08/18/24 ascorbic acid (vitamin C) 100 mg tablet (Vitamin C) 100 mg PO DAILY supplement 08/18/24 cholecalciferol (vitamin D3) 50 mcg (2,000 unit) capsule 2,000 unit PO DAILY supplement 08/18/24 melatonin 10 mg tablet 10 mg PO QHS PRN sleep 08/18/24 acetaminophen 500 mg tablet 1,000 mg (2 x 500 mg) PO Q6H PRN PRN Pain Score 1-5 #0 tabs 09/02/24 Hospital Course Operations - (See below.) Procedures None Summary of Care Provided Minutes Spent on Discharge: 35 Hospital Course: 89 year old female with below past medical history hospitalized for left hip fracture, under left hip cephalomedullary nail fixation 08/11/2024, complicated by oral thrush, c. diff diarrhea, admitted to TCU with debility, here for rehabilitation, strengthening, prior to discharge home alone. Discharge home alone 09/04/2024, [facility] PT, pediatric FWW. FWW: Patient is unsafe to use a cane and requires a walker for ambulation in the home and the community. Physical Exam Const alert General Appearance: cooperative HEENT normocephalic Eyes PERRL and EOMs intact bilaterally Neck supple, no JVD and no carotid bruits Resp normal respiratory effort, normal air movement and clear to auscultation bilaterally Cardio regular rate and regular rhythm GI normal to inspection, nondistended, normoactive bowel sounds, non-tender and non-distended Extremity normal capillary refill General Extremity: Negative for edema Skin no rashes or lesions noted General Skin Exam: no breakdown Psych affect normal Appearance: appropriate Weight / BMI Weight Weight: 60.6 kg Body Mass Index (BMI) 26.1 ABG / Lab / Microbiology Data 09/02/24 05:12 09/02/24 05:12 Laboratory: Laboratory Results - last 24 hr 09/02/24 05:12: WBC 5.5, RBC 4.00 L, Hgb 12.2, Hct 38.3, MCV 95.8, MCH 30.5, M CHC 31.9 L, RDW Std Deviation 54.5 H, RDW Coeff of Vega 15.4 H, Plt Count 426, MPV 9.2, Immature Gran % (Auto) 0.400, Neut % (Auto) 42.0 L, Lymph % (Auto) 40.5, Dale % (Auto) 13.3 H, Eos % (Auto) 3.3, Baso % (Auto) 0.5, Absolute Neuts (auto) 2.3, Absolute Lymphs (auto) 2.23, Nucleated RBC % 0, Sodium 140, Potassium 4.4, Chloride 104, Carbon Dioxide 31.0, Anion Gap 6, BUN 8, Creatinine 0.68, Estim Creat Clear Calc 40.31, Est GFR (MDRD) Af Amer 105, Est GFR (MDRD) Non-Af 87, BUN/Creatinine Ratio 11.8, Glucose 86, Calcium 9.0 D/C Instructions Discharge Diet: No restrictions Discharge Activity: Return to Normal Activity, May Shower and Use Walker Weight Bearing Status: Weight bearing as tolerated Call your doctor if you observe: Fever of 101 or Higher, Inability to urinate, Inability to have a bowel movement, Shortness of breath, Dizziness, Fainting spells, Swelling in the ankles, Chest pain and Uncontrolled pain DC O2, CPAP, BIPAP Needs Home O2 Discharge instructions: No Additional Instructions: Discharge home alone 09/04/2024, [facility] PT, pediatric FWW. FWW: Patient is unsafe to use a cane and requires a walker for ambulation in the home and the community. Please Follow Up With: Breezy Vergara When: As scheduled. Meaningful Use Info Meaningful Use Meaningful Use Diagnoses (Choose all that apply): None applicable Ischemic Stroke Statin Dosing Therapy Reference: STATIN DOSE THERAPY REFERENCE: * Patients > 75 years receive moderate or high dose statin therapy. * Patients 75 years or YOUNGER should receive HIGH intensity statin dose unless contraindicated. You will be required to document reason for non-treatment if statin daily dose does not meet guidelines. HIGH DOSE STATIN THERAPY DAILY Atorvastatin > than or = to 40 mg Rosuvastatin > than or = to 20 mg Amlodipine + Atorvastatin > than or = to 2.5/40 mg Ezetimibe + Simvastatin 10/80 mg Simvastatin 80mg Discharge Plan Admission Admit Date/Time: 08/18/24 17:20 Primary Reason for Your Visit: Debility. Attending Provider: Fred Paiz Chi Primary Care Provider: John Landin Instructions Additional Instructions / Restrictions: Discharge home alone 09/04/2024, [facility] PT, pediatric FWW. FWW: Patient is unsafe to use a cane and requires a walker for ambulation in the home and the community. Discharge Orders/Prescriptions Prescriptions: New acetaminophen 500 mg Tablet 1,000 mg PO Q6H PRN PRN (Reason: Pain Score 1-5) Qty: 0 0RF Continued cholecalciferol (vitamin D3) 50 mcg (2,000 unit) capsule 2,000 unit PO DAILY melatonin 10 mg tablet 10 mg PO QHS PRN (Reason: sleep) Otezla 30 mg tablet 30 mg PO DAILY Vitamin C 100 mg tablet 100 mg PO DAILY Discontinued acetaminophen 325 mg tablet 650 mg PO Q6H PRN (Reason: mild pain (scale score 1-3)) enoxaparin 40 mg/0.4 mL syringe 40 mg subcut DAILY nystatin 100,000 unit/mL suspension 5 ml PO TID Rx Instructions: swish and swallow x 10 days oxycodone 5 mg tablet 2.5 mg PO Q6H PRN (Reason: pain (scale score 4-10)) polyethylene glycol 3350 [Miralax] 17 gram/dose powder 17 g PO DAILY PRN (Reason: constipation) trazodone 50 mg tablet 50 mg PO QHS PRN (Reason: sleep) vancomycin 125 mg capsule 125 mg PO 4X/DAY Rx Instructions: x9 days Referrals / Follow Up: John Landin MD [Primary Care Provider] - Disposition Disposition (needs filled in before D/C Order can be placed): Home, Self Care
[2024-09-02] MEDS: DiphenhydrAMINE 25 MG Capsule PO (22:06)
[2024-09-03 08:07] VITALS: BP 127/71; PULSE 83; RESP 16; TEMP 36.6; O2SAT 92
[2024-09-03] MEDS: Cholecalciferol (VIT D3) 25 MCG TABLET (1,000 UNITS) 50 MCG PO (08:12)
[2024-09-03] MEDS: Ascorbic Acid 500 MG Tablet PO (08:12)
[2024-09-03] MEDS: Lactobacillis Acidophilus 1 CAP PO ×2 (08:12→20:12)
[2024-09-03] MEDS: Acetaminophen 500 MG Tablet 1000 MG PO ×2 (12:30→20:12)
[2024-09-03 15:27] VITALS: BMI 24.3
--- NOTE | 2024-09-03 15:50 | NURSING ---
pt notified of staff member testing positive for covid. declined family to be notified
[2024-09-03 16:45] VITALS: PULSE 74; RESP 15
[2024-09-04] MEDS: Acetaminophen 500 MG Tablet 1000 MG PO (03:58)
[2024-09-04 04:30] VITALS: PULSE 72; O2SAT 96
[2024-09-04] MEDS: Lactobacillis Acidophilus 1 CAP PO (07:56)
[2024-09-04] MEDS: Ascorbic Acid 500 MG Tablet PO (07:56)
[2024-09-04] MEDS: Cholecalciferol (VIT D3) 25 MCG TABLET (1,000 UNITS) 50 MCG PO (07:56)
[2024-09-04 08:54] VITALS: BP 127/70; PULSE 84; RESP 16; TEMP 36.5; O2SAT 94
== END 2024-09-04 09:00 | disposition home or self-care (01) | DRG 560 ==
PROVIDERS: Admitting Provider Family Medicine Geriatric Medicine; PCP Family Medicine; Visit Provider Family Medicine Geriatric Medicine
DX: S72.002D Fracture of unspecified part of neck of left femur, subsequent encounter for closed fracture with routine healing (principal); A04.72 Enterocolitis due to Clostridium difficile, not specified as recurrent; B37.0 Candidal stomatitis; L03.116 Cellulitis of left lower limb; E55.9 Vitamin D deficiency, unspecified; E73.9 Lactose intolerance, unspecified; L40.9 Psoriasis, unspecified; W19.XXXD Unspecified fall, subsequent encounter; Z79.01 Long term (current) use of anticoagulants; G47.00 Insomnia, unspecified; Z79.899 Other long term (current) drug therapy
CPT/HCPCS: 36415; 80048; 82306; 85025; 87811; 97110; 97116; 97162; 97166; 97530; 97535; 97802